=== PATIENT | female | born 1970 | race Caucasian/White ===

== ENCOUNTER → 2018-06-07 | Outpatient (CLI) | payer OTHER | LOC: M ADAMS 14:23 | DX: M17.11 Unilateral primary osteoarthritis, right knee (principal) | CPT/HCPCS: 73564 ==

== ENCOUNTER → 2020-08-22 | Outpatient (REF) | payer OTHER | LOC: M LAB REF 18:45 | PROVIDERS: ATTEND Physician Assistant | DX: L30.9 Dermatitis, unspecified (principal) ==

== ENCOUNTER → 2020-08-31 | Outpatient (REF) | payer OTHER ==
[2020-08-31 16:48] LABS: BASO % 0.4 % (0.0-1.0); EOS # 0.6 10^3/uL (0.0-0.5); EOS % 10.9 % (0.0-3.0); HEMATOCRIT 40.1 % (36.0-47.0); HEMOGLOBIN 12.3 g/dl (12.0-15.5); LYMPH # 1.3 10^3/uL (1.5-5.0); LYMPH % 23.5 % (24.0-44.0); MEAN CORPUSCULAR HEMOGLOBIN 26.3 pg (27.0-33.0); MEAN CORPUSCULAR HGB CONC 30.7 g/dl (32.0-36.5); MEAN CORPUSCULAR VOLUME 85.7 fl (80.0-96.0); MONO # 0.6 10^3/uL (0.0-0.8); NEUTROPHILS # 3.1 10^3/uL (1.5-8.5); PLATELET COUNT, AUTOMATED 446 10^3/uL (150-450); RED BLOOD COUNT 4.68 10^6/uL (4.00-5.40); WHITE BLOOD COUNT 5.6 10^3/uL (4.0-10.0)
[2020-08-31 17:09] LABS: HEMOGLOBIN A1c 5.4 %
[2020-08-31 17:22] LABS: ALBUMIN 3.8 GM/DL (3.2-5.2); ALT/SGPT 28 U/L (12-78); BILIRUBIN,TOTAL 0.2 MG/DL (0.2-1.0); BLOOD UREA NITROGEN 19 MG/DL (7-18); CALCIUM LEVEL 9.7 MG/DL (8.5-10.1); CARBON DIOXIDE LEVEL 28 MEQ/L (21-32); CHLORIDE LEVEL 100 MEQ/L (98-107); CHOLESTEROL LEVEL 277 MG/DL (<200); CHOLESTEROL RISK RATIO 4.396 (<5); CREATININE FOR GFR 0.93 MG/DL (0.55-1.30); GLOMERULAR FILTRATION RATE > 60.0 (>58); GLUCOSE, FASTING 80 MG/DL (70-100); HDL CHOLESTEROL 63 MG/DL (>40); LDL CHOLESTEROL 193 MG/DL (<100); NON-HDL-C 214 MG/DL; POTASSIUM SERUM 4.3 MEQ/L (3.5-5.1); SODIUM LEVEL 136 MEQ/L (136-145); TOTAL PROTEIN 8.4 GM/DL (6.4-8.2); TRIGLYCERIDES LEVEL 107 MG/DL (<150)
== END ==
LOC: M LAB REF 16:13
PROVIDERS: ATTEND Physician Assistant
DX: G43.909 Migraine, unspecified, not intractable, without status migrainosus (principal); E66.9 Obesity, unspecified; Z13.220 Encounter for screening for lipoid disorders; Z13.228 Encounter for screening for other metabolic disorders

== ENCOUNTER 2021-06-22 13:20 | Inpatient (IN) | payer OTHER ==
[2021-06-22] VITALS (9 sets, daily range): BP systolic 109–122; BP diastolic 58–77
[~2021-06-22] VITALS: Ht 157.5 cm; Wt 108.0 kg
[2021-06-22 15:05] LABS: BASO % 0.2 % (0.0-1.0); EOS # 0.3 10^3/uL (0.0-0.5); EOS % 5.9 % (0.0-3.0); LYMPH # 1.1 10^3/uL (1.5-5.0); LYMPH % 22.3 % (24.0-44.0); MEAN CORPUSCULAR HGB CONC 26.1 g/dl (32.0-36.5); MEAN CORPUSCULAR VOLUME 65.2 fl (80.0-96.0); MONO # 0.5 10^3/uL (0.0-0.8); MONO % 9.6 % (2.0-8.0); NEUTROPHILS % 61.4 % (36.0-66.0); PLATELET COUNT, AUTOMATED 347 10^3/uL (150-450); RED BLOOD COUNT 2.76 10^6/uL (4.00-5.40); WHITE BLOOD COUNT 4.9 10^3/uL (4.0-10.0)
[2021-06-22 15:07] LABS: HEMOGLOBIN 4.7 g/dl (12.0-15.5)
[2021-06-22 15:36] LABS: ALBUMIN 3.2 GM/DL (3.2-5.2); ALT/SGPT 14 U/L (12-78); BILIRUBIN,TOTAL 0.2 MG/DL (0.2-1.0); BLOOD UREA NITROGEN 9 MG/DL (7-18); CARBON DIOXIDE LEVEL 29 MEQ/L (21-32); CHLORIDE LEVEL 109 MEQ/L (98-107); CREATININE FOR GFR 0.78 MG/DL (0.55-1.30); GLOMERULAR FILTRATION RATE > 60.0 (>51); GLUCOSE, FASTING 85 MG/DL (70-100); POTASSIUM SERUM 4.2 MEQ/L (3.5-5.1); SODIUM LEVEL 140 MEQ/L (136-145); TOTAL PROTEIN 6.8 GM/DL (6.4-8.2)
[2021-06-22] MEDS ORDERED: BUPR75TA5 PO (15:54)
[2021-06-22] MEDS ORDERED: TRAZ-189 PO (15:54)
[2021-06-22] MEDS ORDERED: PANT40TA29 PO (15:54)
[2021-06-22] MEDS ORDERED: FAMO40TA3 PO (15:54)
[2021-06-22] MEDS ORDERED: DUPI300I PO (15:54)
[2021-06-22] MEDS ORDERED: ARIP10TA32 PO (15:54)
[2021-06-22] MEDS ORDERED: VITA200016 PO (15:54)
[2021-06-22] MEDS ORDERED: ZOLO100T PO (15:54)
[2021-06-22] MEDS ORDERED: GABA600T4 PO ×2 (15:54)
[2021-06-22] MEDS ORDERED: LEVOTAB10 PO (15:54)
[2021-06-22] MEDS ORDERED: CIPR0.3S6 OS (15:54)
[2021-06-22] MEDS ORDERED: HYDR50CA2 PO (15:54)
[2021-06-22] MEDS ORDERED: MOM 30ML SUSPENSION UDC PO PRN (16:40)
[2021-06-22] MEDS ORDERED: MAALOX 30 ML SUSP *UDC PO PRN (16:40)
[2021-06-22] MEDS ORDERED: ACETAMINOPHEN TAB 650MG DOSE (2X325MG) PO PRN (16:40)
--- NOTE | 2021-06-22 16:50 | HPEPDOC ---
[facility] Medical History & Physical Date of Admission Jun 22, 2021 Date of Service: Jun 22, 2021 History and Physical CHIEF COMPLAINT: anemia HISTORY OF PRESENT ILLNESS: 51 yo F with a pmhx of asthma, eczema, migraines, bilateral knee osteoarthritis depression, GERD, class 3 obesity, presented from PCP office with Hgb of 4.7. 2 month history of generalized fatigue and shortness of breath. Stool heme occult positive in ER. She has no abdominal pain, no history of melena, no hematemesis, no personal or family hx of colon ca. She take advil twice daily and has done so for many months, to treat her knee pain. She denies prior hx of heavy etoh use. Patient had 3 units pRBC ordered, and will be admitted to hospitalist service with general surgery consultation. PAST MEDICAL HISTORY: Asthma Arthritis Migraines Eczema Allergies GERD Obesity HLD PAST SURGICAL HISTORY: Hysterectony 07/2004 Tonsillectomy 11/2006 Cholecystectomy 02/2006 SOCIAL HISTORY: Non smoker Non drinker Denies illicit drug use FAMILY HISTORY: Diabetes in mother's side ALLERGIES: Please see below. REVIEW OF SYSTEMS: 10 point ROS was conducted, relevant findings are noted in the HPI. HOME MEDICATIONS: Please see below. PHYSICAL EXAMINATION: VITAL SIGNS: please see below GENERAL APPEARANCE: pale, calm, comfortable sitting in bed. HEENT: PERRLA, EOMI. CARDIOVASCULAR: RRR, normal S1, S2, no rubs or gallps. LUNGS: CTAB, good inspiratory effort ABDOMEN: soft, non tender, non distended, no rigidity or guarding. MUSCULOSKELETAL: normal ROM, no joint deformity, knee pain on ROM. EXTREMITIES: no cyanosis, no edema. NEUROLOGICAL: no focal neuro deficit, CN2-12, speech clear. PSYCHIATRIC: calm, appropriate. LABORATORY DATA: See below. MICROBIOLOGY: Please see below. ASSESSMENT: . PLAN: Blood loss anemia: 2 month hx of fatigue, SOB. PCP referred to ER. Hgb 4.7. No gross bleeding. Stool heme occult positive in ER. 3 units of pRBC ordered. Start PPI IV. D/w Dr. Jackson, surgical consult placed. Likely endoscopy as outpatient if Hgb stable. Repeat CBC after transfusion. Depression: resume home meds Obesity: class 3. BMI 43.2. Complicates care. HLD: resume home meds. Dispo: once clinically stable, expect to return home after 2 midnights. Full Code Diet: clear liquid diet. Vital Signs Vital Signs Date Time Temp Pulse Resp B/P (MAP) Pulse Ox O2 Delivery O2 Flow Rate FiO2 06/22/21 13:25 98.0 89 16 112/55 (74) 99 Laboratory Data Labs 24H Laboratory Tests 2 06/22/21 14:50: Immature Granulocyte % (Auto) 0.6, Neutrophils (%) (Auto) 61.4, Lymphocytes (%) (Auto) 22.3L, Monocytes (%) (Auto) 9.6H, Eosinophils (%) (Auto) 5.9H, Basophils (%) (Auto) 0.2, Neutrophils # (Auto) 3.0, Lymphocytes # (Auto) 1.1L, Monocytes # (Auto) 0.5, Eosinophils # (Auto) 0.3, Basophils # (Auto) 0.0, Nucleated Red Blood Cells % (auto) 0.6H, Anion Gap 2L, Glomerular Filtration Rate > 60.0, Calcium Level 9.0, Total Bilirubin 0.2, Aspartate Amino Transf (AST/SGOT) 12, Alanine Aminotransferase (ALT/SGPT) 14, Alkaline Phosphatase 60, Total Protein 6.8, Albumin 3.2, Albumin/Globulin Ratio 0.9L 06/22/21 14:53: POC Glucose (Misc Panel) 88, POC Sodium (Misc Panel) 142, POC Potassium (Misc Panel) 3.9, POC Chloride (Misc Panel) 103, POC Total CO2 (Misc Panel) 25.0, POC Blood Urea Nitrogen (Misc Panel 7L, POC Ionized Calcium (Misc Panel) 5.0, POC Creatinine (Misc Panel) 0.8, POC Hematocrit (Misc Panel) 17.0L CBC/BMP Laboratory Tests 06/22/21 14:50 Home Medications Scheduled Aripiprazole (Aripiprazole) 10 Mg Tablet, 10 MG PO DAILY Bupropion HCl (Bupropion HCl) 75 Mg Tablet, 75 MG PO BID Cholecalciferol (Vitamin D3) (Vitamin D3) 50 Mcg Capsule, 50 MCG PO DAILY Ciprofloxacin Hcl (Ciprofloxacin HCl) 0.3% 2.5ML Drops, 1 DROP OU Q4H Dupilumab (Dupixent) 300 Mg/2 Ml Syringe, 300 MG PO Q2WK Famotidine (Famotidine) 40 Mg Tablet, 40 MG PO DAILY Gabapentin (Gabapentin) 600 Mg Tablet, 600 MG PO DAILY Gabapentin (Gabapentin) 600 Mg Tablet, 1,200 MG PO BID MIDDAY AND QHS Levocetirizine Dihydrochloride (Levocetirizine Dihydrochloride) 5 Mg Tablet, 5 MG PO DAILY Pantoprazole Sodium (Pantoprazole Sodium) 40 Mg Tablet.dr, 40 MG PO DAILY Sertraline Hcl (Zoloft) 100 Mg Tablet, 200 MG PO DAILY Trazodone HCl (Trazodone HCl) 100 Mg Tablet, 150 MG PO QHS Scheduled PRN Hydroxyzine Pamoate (Hydroxyzine Pamoate) 50 Mg Capsule, 50 MG PO QID PRN for ANXIETY Allergies Coded Allergies: MS - Ibuprofen (Verified Allergy, Unknown, 09/30/14) MS - Penicillins (Verified Allergy, Unknown, 01/21/13) MS - Penicillins Cross Reactors (Verified Allergy, Unknown, 01/21/13) MS - Azithromycin (Unverified Adverse Reaction, Mild, ITCHING, 01/21/13) MS - Sulfa Drugs (Unverified Adverse Reaction, Mild, ITCHING, 01/21/13) MS - Sulfa Drugs Cross Reactors (Unverified Adverse Reaction, Mild, ITCHING, 01/21/13) MS - Sulfamethoxazole (Unverified Adverse Reaction, Mild, ITCHING, 01/21/13) MS - Trimethoprim (Unverified Adverse Reaction, Mild, ITCHING, 01/21/13) Uncoded Allergies: VACCINES (Allergy, Severe, INCREASED FEVER/HOSPITALIZED , 01/21/13) MIN OLIVARES MD Jun 22, 2021 16:50
[2021-06-22] MEDS ORDERED: ARIP1TAB6 PO (16:54)
[2021-06-22] MEDS ORDERED: IBUP-1720 PO (16:57)
[2021-06-22] MEDS ORDERED: ACET-683 PO (16:57)
[2021-06-22] MEDS ORDERED: HOME MED LIST COMPLETE! XX SCH (17:00)
--- NOTE | 2021-06-22 17:41 | REPVR ---
PROCEDURE INFORMATION: Exam: CT Abdomen And Pelvis Without Contrast Exam date and time: 06/22/2021 5:12 PM Age: 51 years old Clinical indication: Other: Gi bleed; Additional info: Gib TECHNIQUE: Imaging protocol: Computed tomography of the abdomen and pelvis without contrast. Axial, coronal and sagittal reformatted images were created and reviewed. Radiation optimization: All CT scans at this facility use at least one of these dose optimization techniques: automated exposure control; mA and/or kV adjustment per patient size (includes targeted exams where dose is matched to clinical indication); or iterative reconstruction. COMPARISON: CR Spine. Lumbosacral, complete 08/10/2014 1:24 PM FINDINGS: Lungs: Minimal linear stranding and groundglass at the lung bases, likely due to atelectasis and/or scarring. Mediastinal space: Small hiatal hernia. Liver: Mild hepatomegaly. Gallbladder and bile ducts: Status post cholecystectomy. No biliary ductal dilatation. Pancreas: Unremarkable. Spleen: Unremarkable. Adrenal glands: Normal. No mass. Kidneys and ureters: No mass. No radiodense calculi. No hydronephrosis. Stomach and bowel: No bowel wall thickening. No obstruction. No pneumatosis. Appendix: Normal. Intraperitoneal space: No free fluid. No organized fluid collection. No free air. Vasculature: Minimal atherosclerotic disease. No aneurysm. Lymph nodes: No pathologically enlarged lymph nodes. Urinary bladder: Unremarkable as visualized. Reproductive: Status post hysterectomy. Bones/joints: No acute osseous abnormality. Mild degenerative changes. Soft tissues: Unremarkable. IMPRESSION: 1. Limited noncontrast examination without CT evidence of acute intra-abdominal or pelvic pathology. 2. Additional findings, as above. Electronically signed by: Bc Pak On 06/22/2021 17:41:12 PM
[2021-06-22 17:46] LABS: RSV AMPLIFICATION NEGATIVE (NEGATIVE)
[2021-06-22] MEDS ORDERED: hydrOXYzine 50 MG TAB PO PRN (19:30)
[2021-06-22] MEDS: GABAPENTIN 300 MG CAP PO SCH (21:58)
[2021-06-22] MEDS: ARIPiprazole 10 MG TAB PO SCH (21:58)
[2021-06-22] MEDS: traZODone 50 MG TAB PO SCH (21:58)
[2021-06-23] VITALS (10 sets, daily range): BP systolic 111–129; BP diastolic 62–80
[2021-06-23] MEDS: PANTOPRAZOLE 40MG VIAL (C9113 PER 1) IV SCH ×2 (00:21→08:13)
[2021-06-23] MEDS: CIPROFLOXACIN 0.3% OPHTH SOLN 2.5ML OS SCH ×6 (04:00→20:00)
[2021-06-23 04:27] LABS: BASO % 0.2 % (0.0-1.0); EOS # 0.3 10^3/uL (0.0-0.5); EOS % 4.7 % (0.0-3.0); HEMATOCRIT 24.6 % (36.0-47.0); LYMPH % 17.6 % (24.0-44.0); MEAN CORPUSCULAR HEMOGLOBIN 20.9 pg (27.0-33.0); MEAN CORPUSCULAR HGB CONC 29.3 g/dl (32.0-36.5); MEAN CORPUSCULAR VOLUME 71.5 fl (80.0-96.0); MONO # 0.5 10^3/uL (0.0-0.8); MONO % 9.8 % (2.0-8.0); NEUTROPHILS # 3.7 10^3/uL (1.5-8.5); NEUTROPHILS % 67.3 % (36.0-66.0); PLATELET COUNT, AUTOMATED 310 10^3/uL (150-450); RED BLOOD COUNT 3.44 10^6/uL (4.00-5.40); WHITE BLOOD COUNT 5.5 10^3/uL (4.0-10.0)
[2021-06-23 04:38] LABS: HEMOGLOBIN 7.2 g/dl (12.0-15.5)
[2021-06-23 04:51] LABS: ALBUMIN 2.9 GM/DL (3.2-5.2); ALT/SGPT 14 U/L (12-78); BILIRUBIN,TOTAL 0.3 MG/DL (0.2-1.0); BLOOD UREA NITROGEN 8 MG/DL (7-18); CALCIUM LEVEL 8.4 MG/DL (8.5-10.1); CARBON DIOXIDE LEVEL 27 MEQ/L (21-32); CHLORIDE LEVEL 108 MEQ/L (98-107); CREATININE FOR GFR 0.72 MG/DL (0.55-1.30); GLOMERULAR FILTRATION RATE > 60.0 (>51); GLUCOSE, FASTING 87 MG/DL (70-100); POTASSIUM SERUM 3.8 MEQ/L (3.5-5.1); SODIUM LEVEL 141 MEQ/L (136-145); TOTAL PROTEIN 6.3 GM/DL (6.4-8.2)
[2021-06-23] MEDS: GABAPENTIN 300 MG CAP PO SCH ×3 (08:08→20:10)
[2021-06-23] MEDS: SERTRALINE 100 MG TAB PO SCH (08:08)
[2021-06-23] MEDS: buPROPion 75 MG TAB PO SCH (08:13)
--- NOTE | 2021-06-23 09:44 | CR.PDOC ---
General Surgery Consultation Date of Consultation 06/23/21 History and Physical CONSULT REPORT FOR: hospitalist service REASON FOR CONSULTATION: severe anemia HISTORY OF PRESENT ILLNESS: Patient is a 51-year-old female admitted yesterday afternoon after she was found to be severely anemic on labs performed on her primary care provider's office which was performed to evaluate her complaints of generalized body weakness, easy fatigability for the past 2 months or so. She denies any passage of cross blood, hematemesis, hematochezia, melena. She denies any ongoing abdominal discomfort though she mentions that she does have reflux or heartburn problems for which she was given pantoprazole 40 mg which she takes in the morning and famotidine 40 mg which he takes in the evening with adequate relief of her discomfort. She takes an average of 2 g of Tylenol and 1200 mg of ibuprofen almost daily for her knee arthritis for so long she could remember according to her. She has never had any colonoscopy. She denies any significant family or personal history for GI malignancy, colorectal cancer, inflammatory bowel disease. She denies any unexplained weight loss. Here in the ER she was found to have a hemoglobin of 4.7, hematocrit of 18. So far she has gotten 3 units of blood which raised her levels to 7.2 of hemoglobin and 24.6 of hematocrit. Has no bowel movements since yesterday morning which he reports is normal. She reports normal regular formed brown stools. I was asked to see the patient consider performing endoscopy and colonoscopy while she is here. PAST MEDICAL HISTORY: 1. Asthma 2. Arthritis 3. Migraines 4. Obesity BMI 43.5 5. Gastroesophageal reflux disease 6. Hyperlipidemia. PAST SURGICAL HISTORY: INCLUDES: 1. Hysterectomy 2003 2. Tonsillectomy 3. Cholecystectomy. PREVIOUS ANESTHESIA REACTIONS: Denies ALLERGIES: Please see below. FAMILY HISTORY: Denies significant family history for colorectal malignancy, GI malignancy, inflammatory bowel disease.. HOME MEDICATIONS: Please see below. REVIEW OF SYSTEMS: GENERAL: Denies any significant weight loss, fevers chills, change in appetite, reports 2-month history of weakness easy fatigability. HEENT: Denies problems with vision or hearing. NECK: Denies any neck pain]. CARDIOVASCULAR: Denies chest pain and palpitations. MUSCULOSKELETAL: Reports significant bilateral knee pain from arthritis. SKIN: Denies rash. NEUROLOGIC: Reports occasional migraine headaches. HEMATOLOGY/ONCOLOGY: Denies bleeding or clotting disorder. She takes NSAIDs regularly, not on any anticoagulation HEART: Denies any chest pains, palpitations, paroxysmal dyspnea, orthopnea. PULMONARY: Denies chronic cough, dyspnea and wheezing. GASTROINTESTINAL: See HPI. GENITOURINARY: Denies dysuria, frequency, hematuria and nocturia. ENDOCRINE: Denies polydipsia, polyphagia, polyuria, heat or cold intolerance. INFECTIOUS: Denies any recent upper respiratory tract infection, UTI, need for use of antibiotics. NUTRITION: Reports fair appetite. PHYSICAL EXAMINATION: VITALS SIGNS: Please see below. GENERAL APPEARANCE: Patient seen sitting up on the bed, comfortable in no acute distress. SKIN: Warm and dry, pale appearance. HEENT: Normocephalic, atraumatic. pale palpebral conjunctiva, anicteric sclerae. Lips and mucosa appear moist. NECK: Supple, no thyromegaly. No obvious jugular venous distention. LUNGS: Clear to auscultation bilaterally. No wheezing appreciated. HEART: No chest wall abnormalities. Regular rate and rhythm with no murmurs appreciated. ABDOMEN: Abdomen is obese, soft, round. Nondistended. No tenderness over the epigastric area in particular. Prior surgical scars all healed no herniation. EXTREMITIES: No significant extremity edema ANCILLARIES: . LABORATORY DATA: Please see below. IMAGING STUDIES: She had a CT abdomen and pelvis that was read as normal. IMPRESSION AND PLAN: Significant anemia, symptomatic anemia Probable GI source may be upper GI source given his significant history for intake of NSAIDs daily for her arthritis. She is 51 years old has not had any screening colonoscopy done yet. I will schedule her for upper endoscopy and colonoscopy in the morning. She will have a bowel prep tonight. Keep her on clear liquids today. I discussed with the patient the details of the proposed procedure, the benefits of performing the procedure, the most common risks on doing the procedure. This may include risk for bleeding with biopsy, polypectomy, risk for perforation, aspiration, adverse drug reaction. I have given her a chance to ask questions, voice out concerns. Patient has agreed to proceed Vital Signs Vital Signs Date Time Temp Pulse Resp B/P (MAP) Pulse Ox O2 Delivery O2 Flow Rate FiO2 06/23/21 08:21 98.3 79 16 128/74 95 Room Air I&Os I&O- Last 24 Hours up to 6 AM 06/23/21 05:59 Intake Total 1800 ml Output Total 0 ml Balance 1800 ml Laboratory Data Labs 24H Laboratory Tests 2 06/22/21 14:50: Immature Granulocyte % (Auto) 0.6, Neutrophils (%) (Auto) 61.4, Lymphocytes (%) (Auto) 22.3L, Monocytes (%) (Auto) 9.6H, Eosinophils (%) (Auto) 5.9H, Basophils (%) (Auto) 0.2, Neutrophils # (Auto) 3.0, Lymphocytes # (Auto) 1.1L, Monocytes # (Auto) 0.5, Eosinophils # (Auto) 0.3, Basophils # (Auto) 0.0, Nucleated Red Blood Cells % (auto) 0.6H, Anion Gap 2L, Glomerular Filtration Rate > 60.0, Calcium Level 9.0, Total Bilirubin 0.2, Aspartate Amino Transf (AST/SGOT) 12, Alanine Aminotransferase (ALT/SGPT) 14, Alkaline Phosphatase 60, Total Protein 6.8, Albumin 3.2, Albumin/Globulin Ratio 0.9L 06/22/21 14:53: POC Glucose (Misc Panel) 88, POC Sodium (Misc Panel) 142, POC Potassium (Misc Panel) 3.9, POC Chloride (Misc Panel) 103, POC Total CO2 (Misc Panel) 25.0, POC Blood Urea Nitrogen (Misc Panel 7L, POC Ionized Calcium (Misc Panel) 5.0, POC Creatinine (Misc Panel) 0.8, POC Hematocrit (Misc Panel) 17.0L 06/22/21 16:53: Coronavirus (COVID-19)(PCR) NEGATIVE, Influenza Type A (RT-PCR) NEGATIVE, Influenza Type B (RT-PCR) NEGATIVE, Respiratory Syncytial Virus (PCR) NEGATIVE 06/23/21 03:45: Immature Granulocyte % (Auto) 0.4, Neutrophils (%) (Auto) 67.3H, Lymphocytes (%) (Auto) 17.6L, Monocytes (%) (Auto) 9.8H, Eosinophils (%) (Auto) 4.7H, Basophils (%) (Auto) 0.2, Neutrophils # (Auto) 3.7, Lymphocytes # (Auto) 1.0L, Monocytes # (Auto) 0.5, Eosinophils # (Auto) 0.3, Basophils # (Auto) 0.0, Nucleated Red Blood Cells % (auto) 0.5H, Anion Gap 6L, Glomerular Filtration Rate > 60.0, Calcium Level 8.4L, Total Bilirubin 0.3, Aspartate Amino Transf (AST/SGOT) 11, Alanine Aminotransferase (ALT/SGPT) 14, Alkaline Phosphatase 56, Total Protein 6.3L, Albumin 2.9L, Albumin/Globulin Ratio 0.9L, Magnesium Level 2.0 CBC/BMP Laboratory Tests 06/22/21 14:50 06/23/21 03:45 Home Medications Scheduled Aripiprazole (Aripiprazole) 10 Mg Tablet, 10 MG PO QHS, (Reported) TAKE WITH 5MG TAB. TOTAL OF 15MG Aripiprazole (Aripiprazole) 5 Mg Tablet, 5 MG PO QHS, (Reported) TAKE WITH 10MG TAB. TOTAL OF 15MG Bupropion HCl (Bupropion HCl) 75 Mg Tablet, 150 MG PO DAILY, (Reported) Cholecalciferol (Vitamin D3) (Vitamin D3) 50 Mcg Capsule, 50 MCG PO DAILY, (Reported) Ciprofloxacin Hcl (Ciprofloxacin HCl) 0.3% 2.5ML Drops, 1 DROP OS Q4H, (Reported) Dupilumab (Dupixent) 300 Mg/2 Ml Syringe, 300 MG PO Q2WK, (Reported) Famotidine (Famotidine) 40 Mg Tablet, 40 MG PO QHS, (Reported) Gabapentin (Gabapentin) 600 Mg Tablet, 600 MG PO DAILY, (Reported) Gabapentin (Gabapentin) 600 Mg Tablet, 1,200 MG PO BID, (Reported) MIDDAY AND QHS Levocetirizine Dihydrochloride (Levocetirizine Dihydrochloride) 5 Mg Tablet, 5 MG PO QHS, (Reported) Pantoprazole Sodium (Pantoprazole Sodium) 40 Mg Tablet.dr, 40 MG PO DAILY, (Reported) Sertraline Hcl (Zoloft) 100 Mg Tablet, 200 MG PO DAILY, (Reported) Trazodone HCl (Trazodone HCl) 100 Mg Tablet, 150 MG PO QHS, (Reported) Scheduled PRN Acetaminophen (Acetaminophen) 500 Mg Tablet, 1,000 MG PO TID PRN for PAIN LEVEL 1-4, (Reported) Hydroxyzine Pamoate (Hydroxyzine Pamoate) 50 Mg Capsule, 50 MG PO QID PRN for ITCHING, (Reported) Ibuprofen (Ibuprofen) 200 Mg Tablet, 800 MG PO TID PRN for PAIN LEVEL 4-7, (Reported) Allergies Coded Allergies: Sulfa (Sulfonamide Antibiotics) (Verified Allergy, Mild, PRURITIS, 06/22/21) azithromycin (Verified Allergy, Mild, PRURITIS, 06/22/21) Penicillins (Unverified Allergy, Unknown, 06/22/21) ibuprofen (Unverified Allergy, Unknown, 06/22/21) Uncoded Allergies: VACCINES (Allergy, Severe, INCREASED FEVER/HOSPITALIZED , 01/21/13) SAROJ MANLEY MD Jun 23, 2021 09:44
--- NOTE | 2021-06-23 11:23 | IPNPDOC ---
Date Seen The patient was seen on 06/23/21. Progress Note SUBJECTIVE: Patient seen examined at bedside. Doing well. No acute bleeding overnight. Hemoglobin improved from 4.7-7.2 after 3 units of packed red blood cells. Fourth unit ordered on running. Patient denies fevers chills nausea vomit diarrhea abdominal pain. OBJECTIVE PHYSICAL EXAMINATION: Physical exam LABORATORY DATA, IMAGING STUDIES, MICROBIOLOGY: Please see below. CT abdomen pelvis without contrast on 06/22/2021: FINDINGS: Lungs: Minimal linear stranding and groundglass at the lung bases, likely due to atelectasis and/or scarring. Mediastinal space: Small hiatal hernia. Liver: Mild hepatomegaly. Gallbladder and bile ducts: Status post cholecystectomy. No biliary ductal dilatation. Pancreas: Unremarkable. Spleen: Unremarkable. Adrenal glands: Normal. No mass. Kidneys and ureters: No mass. No radiodense calculi. No hydronephrosis. Stomach and bowel: No bowel wall thickening. No obstruction. No pneumatosis. Appendix: Normal. Intraperitoneal space: No free fluid. No organized fluid collection. No free air. Vasculature: Minimal atherosclerotic disease. No aneurysm. Lymph nodes: No pathologically enlarged lymph nodes. Urinary bladder: Unremarkable as visualized. Reproductive: Status post hysterectomy. Bones/joints: No acute osseous abnormality. Mild degenerative changes. Soft tissues: Unremarkable. IMPRESSION: 1. Limited noncontrast examination without CT evidence of acute intra-abdominal or pelvic pathology. 2. Additional findings, as above. DVT prophylaxis ordered?: Mechanical prophylaxis only ASSESSMENT: 51 yo F with a pmhx of asthma, eczema, migraines, bilateral knee osteoarthritis depression, GERD, class 3 obesity, presented from PCP office with Hgb of 4.7. 2 month history of generalized fatigue and shortness of breath. Stool heme occult positive in ER. She has no abdominal pain, no history of melena, no hematemesis, no personal or family hx of colon ca. She take advil twice daily and has done so for many months, to treat her knee pain. She denies prior hx of heavy etoh use. Patient had 3 units pRBC ordered, and will be admitted to hospitalist service with general surgery consultation. PLAN: Blood loss anemia: 2 month hx of fatigue, SOB. Takes large amounts of NSAIDs PCP referred to ER. Hgb 4.7. No gross bleeding. Stool heme occult positive in ER. Hgb improved to 7.2 after 3 units of pRBC.. c/w PPI IV. D/w Dr. Jackson, surgical consult placed. D/w Dr. Jackson, plan for upper endoscopy and colonoscopy on 06/24/21. CLD until midnight. Bowel prep ordered by Dr. Jackson. Depression: resume home meds Obesity: class 3. BMI 43.2. Complicates care. HLD: resume home meds. Dispo: once clinically stable, expect to return home after 2 midnights. Full Code Diet: clear liquid diet. VS, I&O, 24H, Fishbone Vital Signs/I&O Vital Signs Date Time Temp Pulse Resp B/P (MAP) Pulse Ox O2 Delivery O2 Flow Rate FiO2 06/23/21 08:21 98.3 79 16 128/74 95 Room Air I&O- Last 24 Hours up to 6 AM 06/23/21 06:00 Intake Total 1800 ml Output Total 375 ml Balance 1425 ml Laboratory Data 24H LABS Laboratory Tests 2 06/22/21 14:50: Immature Granulocyte % (Auto) 0.6, Neutrophils (%) (Auto) 61.4, Lymphocytes (%) (Auto) 22.3L, Monocytes (%) (Auto) 9.6H, Eosinophils (%) (Auto) 5.9H, Basophils (%) (Auto) 0.2, Neutrophils # (Auto) 3.0, Lymphocytes # (Auto) 1.1L, Monocytes # (Auto) 0.5, Eosinophils # (Auto) 0.3, Basophils # (Auto) 0.0, Nucleated Red Blood Cells % (auto) 0.6H, Anion Gap 2L, Glomerular Filtration Rate > 60.0, Calcium Level 9.0, Total Bilirubin 0.2, Aspartate Amino Transf (AST/SGOT) 12, Alanine Aminotransferase (ALT/SGPT) 14, Alkaline Phosphatase 60, Total Protein 6.8, Albumin 3.2, Albumin/Globulin Ratio 0.9L 06/22/21 14:53: POC Glucose (Misc Panel) 88, POC Sodium (Misc Panel) 142, POC Potassium (Misc Panel) 3.9, POC Chloride (Misc Panel) 103, POC Total CO2 (Misc Panel) 25.0, POC Blood Urea Nitrogen (Misc Panel 7L, POC Ionized Calcium (Misc Panel) 5.0, POC Creatinine (Misc Panel) 0.8, POC Hematocrit (Misc Panel) 17.0L 06/22/21 16:53: Coronavirus (COVID-19)(PCR) NEGATIVE, Influenza Type A (RT-PCR) NEGATIVE, Influenza Type B (RT-PCR) NEGATIVE, Respiratory Syncytial Virus (PCR) NEGATIVE 06/23/21 03:45: Immature Granulocyte % (Auto) 0.4, Neutrophils (%) (Auto) 67.3H, Lymphocytes (%) (Auto) 17.6L, Monocytes (%) (Auto) 9.8H, Eosinophils (%) (Auto) 4.7H, Basophils (%) (Auto) 0.2, Neutrophils # (Auto) 3.7, Lymphocytes # (Auto) 1.0L, Monocytes # (Auto) 0.5, Eosinophils # (Auto) 0.3, Basophils # (Auto) 0.0, Nucleated Red Blood Cells % (auto) 0.5H, Anion Gap 6L, Glomerular Filtration Rate > 60.0, Calcium Level 8.4L, Total Bilirubin 0.3, Aspartate Amino Transf (AST/SGOT) 11, Alanine Aminotransferase (ALT/SGPT) 14, Alkaline Phosphatase 56, Total Protein 6.3L, Albumin 2.9L, Albumin/Globulin Ratio 0.9L, Magnesium Level 2.0 CBC/BMP Laboratory Tests 06/22/21 14:50 06/23/21 03:45 MIN OLIVARES MD Jun 23, 2021 11:23
[2021-06-23] MEDS ORDERED: BISACODYL 5 MG TAB PO ONE (16:00)
[2021-06-23] MEDS ORDERED: GOLYTELY SOLN 4000 ML BTL PO ONE (18:00)
[2021-06-23] MEDS: traZODone 50 MG TAB PO SCH (20:10)
[2021-06-23] MEDS: ARIPiprazole 10 MG TAB PO SCH (20:11)
[2021-06-23 22:44] LABS: BASO % 0.2 % (0.0-1.0); EOS # 0.3 10^3/uL (0.0-0.5); EOS % 4.3 % (0.0-3.0); HEMATOCRIT 30.2 % (36.0-47.0); HEMOGLOBIN 9.2 g/dl (12.0-15.5); LYMPH # 1.1 10^3/uL (1.5-5.0); LYMPH % 18.3 % (24.0-44.0); MEAN CORPUSCULAR HGB CONC 30.5 g/dl (32.0-36.5); MEAN CORPUSCULAR VOLUME 72.2 fl (80.0-96.0); MONO # 0.6 10^3/uL (0.0-0.8); MONO % 9.6 % (2.0-8.0); NEUTROPHILS # 4.1 10^3/uL (1.5-8.5); NEUTROPHILS % 67.3 % (36.0-66.0); PLATELET COUNT, AUTOMATED 354 10^3/uL (150-450); RED BLOOD COUNT 4.18 10^6/uL (4.00-5.40); WHITE BLOOD COUNT 6.1 10^3/uL (4.0-10.0)
[2021-06-24] MEDS: CIPROFLOXACIN 0.3% OPHTH SOLN 2.5ML OS SCH
[2021-06-24 06:00] VITALS: BP 112/63
[2021-06-24 06:28] LABS: BASO % 0.2 % (0.0-1.0); EOS # 0.3 10^3/uL (0.0-0.5); EOS % 5.1 % (0.0-3.0); HEMATOCRIT 29.8 % (36.0-47.0); HEMOGLOBIN 9.1 g/dl (12.0-15.5); LYMPH # 0.9 10^3/uL (1.5-5.0); LYMPH % 16.1 % (24.0-44.0); MEAN CORPUSCULAR HEMOGLOBIN 22.2 pg (27.0-33.0); MEAN CORPUSCULAR HGB CONC 30.5 g/dl (32.0-36.5); MEAN CORPUSCULAR VOLUME 72.7 fl (80.0-96.0); MONO # 0.5 10^3/uL (0.0-0.8); MONO % 9.7 % (2.0-8.0); NEUTROPHILS # 3.6 10^3/uL (1.5-8.5); NEUTROPHILS % 68.5 % (36.0-66.0); PLATELET COUNT, AUTOMATED 343 10^3/uL (150-450); WHITE BLOOD COUNT 5.3 10^3/uL (4.0-10.0)
[2021-06-24 06:43] LABS: ALT/SGPT 15 U/L (12-78); BILIRUBIN,TOTAL 0.3 MG/DL (0.2-1.0); BLOOD UREA NITROGEN 7 MG/DL (7-18); CALCIUM LEVEL 9.3 MG/DL (8.5-10.1); CARBON DIOXIDE LEVEL 28 MEQ/L (21-32); CHLORIDE LEVEL 108 MEQ/L (98-107); GLOMERULAR FILTRATION RATE > 60.0 (>51); GLUCOSE, FASTING 84 MG/DL (70-100); MAGNESIUM LEVEL 2.1 MG/DL (1.8-2.4); SODIUM LEVEL 141 MEQ/L (136-145); TOTAL PROTEIN 6.6 GM/DL (6.4-8.2)
[2021-06-24] MEDS: PANTOPRAZOLE 40MG VIAL (C9113 PER 1) IV SCH (09:01)
[2021-06-24] MEDS ORDERED: fentaNYL 100 MCG/2 ML INJECTION (J3010) As Ordered ONE (10:14)
[2021-06-24] MEDS ORDERED: LIDOCAINE 2% 100MG/5ML SDV (FOR ANES.) As Ordered ONE (10:14)
[2021-06-24] MEDS ORDERED: propofoL 500 MG/50 ML VIAL As Ordered ONE (10:14)
--- NOTE | 2021-06-24 10:21 | IPNPDOC ---
Date Seen The patient was seen on 06/24/21. Progress Note SUBJECTIVE: Patient seen examined at bedside. Doing well, no acute events overnight. Hgb stable after 4 units. OBJECTIVE PHYSICAL EXAMINATION: Physical exam LABORATORY DATA, IMAGING STUDIES, MICROBIOLOGY: Please see below. CT abdomen pelvis without contrast on 06/22/2021: FINDINGS: Lungs: Minimal linear stranding and groundglass at the lung bases, likely due to atelectasis and/or scarring. Mediastinal space: Small hiatal hernia. Liver: Mild hepatomegaly. Gallbladder and bile ducts: Status post cholecystectomy. No biliary ductal dilatation. Pancreas: Unremarkable. Spleen: Unremarkable. Adrenal glands: Normal. No mass. Kidneys and ureters: No mass. No radiodense calculi. No hydronephrosis. Stomach and bowel: No bowel wall thickening. No obstruction. No pneumatosis. Appendix: Normal. Intraperitoneal space: No free fluid. No organized fluid collection. No free air. Vasculature: Minimal atherosclerotic disease. No aneurysm. Lymph nodes: No pathologically enlarged lymph nodes. Urinary bladder: Unremarkable as visualized. Reproductive: Status post hysterectomy. Bones/joints: No acute osseous abnormality. Mild degenerative changes. Soft tissues: Unremarkable. IMPRESSION: 1. Limited noncontrast examination without CT evidence of acute intra-abdominal or pelvic pathology. 2. Additional findings, as above. DVT prophylaxis ordered?: Mechanical prophylaxis only ASSESSMENT: 51 yo F with a pmhx of asthma, eczema, migraines, bilateral knee osteoarthritis depression, GERD, class 3 obesity, presented from PCP office with Hgb of 4.7. 2 month history of generalized fatigue and shortness of breath. Stool heme occult positive in ER. She has no abdominal pain, no history of melena, no hematemesis, no personal or family hx of colon ca. She take advil twice daily and has done so for many months, to treat her knee pain. She denies prior hx of heavy etoh use. Patient had 3 units pRBC ordered, and will be admitted to hospitalist service with general surgery consultation. PLAN: Blood loss anemia: 2 month hx of fatigue, SOB. Takes large amounts of NSAIDs PCP referred to ER. Hgb 4.7. No gross bleeding. Stool heme occult positive in ER. Hgb 9.2, stable. Total transfused 4 units prbc. c/w PPI IV. D/w Dr. Jackson, surgical consult placed. D/w Dr. Jackson, plan for upper endoscopy and colonoscopy on 06/24/21. Depression: resume home meds Obesity: class 3. BMI 43.2. Complicates care. HLD: resume home meds. Dispo: once clinically stable, expect to return home after 2 midnights. Full Code Diet: clear liquid diet. VS, I&O, 24H, Fishbone Vital Signs/I&O Vital Signs Date Time Temp Pulse Resp B/P (MAP) Pulse Ox O2 Delivery O2 Flow Rate FiO2 06/24/21 06:00 98.4 77 18 112/63 (79) 97 Room Air I&O- Last 24 Hours up to 6 AM 06/24/21 06:00 Intake Total 2190 ml Output Total 2125 ml Balance 65 ml Laboratory Data 24H LABS Laboratory Tests 2 06/23/21 22:21: Immature Granulocyte % (Auto) 0.3, Neutrophils (%) (Auto) 67.3H, Lymphocytes (%) (Auto) 18.3L, Monocytes (%) (Auto) 9.6H, Eosinophils (%) (Auto) 4.3H, Basophils (%) (Auto) 0.2, Neutrophils # (Auto) 4.1, Lymphocytes # (Auto) 1.1L, Monocytes # (Auto) 0.6, Eosinophils # (Auto) 0.3, Basophils # (Auto) 0.0, Nucleated Red Blood Cells % (auto) 0.8H 06/24/21 05:48: Immature Granulocyte % (Auto) 0.4, Neutrophils (%) (Auto) 68.5H, Lymphocytes (%) (Auto) 16.1L, Monocytes (%) (Auto) 9.7H, Eosinophils (%) (Auto) 5.1H, Basophils (%) (Auto) 0.2, Neutrophils # (Auto) 3.6, Lymphocytes # (Auto) 0.9L, Monocytes # (Auto) 0.5, Eosinophils # (Auto) 0.3, Basophils # (Auto) 0.0, Nucleated Red Blood Cells % (auto) 0.4H, Anion Gap 5L, Glomerular Filtration Rate > 60.0, Calcium Level 9.3, Magnesium Level 2.1, Total Bilirubin 0.3, Aspartate Amino Transf (AST/SGOT) 15, Alanine Aminotransferase (ALT/SGPT) 15, Alkaline Phosphatase 64, Total Protein 6.6, Albumin 3.0L, Albumin/Globulin Ratio 0.8L CBC/BMP Laboratory Tests 06/23/21 22:21 06/24/21 05:48 MIN OLIVARES MD Jun 24, 2021 10:21
--- NOTE | 2021-06-24 10:39 | ROOR ---
Patient Name: Yvonne Bradford Procedure Date: 06/24/2021 9:50 AM Date of : 1970 Age: 51 Gender: Female Note Status: Finalized Procedure: Upper GI endoscopy Indications: Iron deficiency anemia secondary to chronic blood loss Providers: Vini Jackson MD Referring MD: 2. Inpatient 2. Inpatient Requesting Provider: Medicines: Monitored Anesthesia Care Complications: No immediate complications. Procedure: Pre-Anesthesia Assessment: - Prior to the procedure, a History and Physical was performed, and patient medications and allergies were reviewed. The patient is competent. The risks and benefits of the procedure and the sedation options and risks were discussed with the patient. All questions were answered and informed consent was obtained. Patient identification and proposed procedure were verified by the physician, the nurse and the food storeroom clerk in the procedure room. Mental Status Examination: alert and oriented. Airway Examination: normal oropharyngeal airway and neck mobility. Respiratory Examination: clear to auscultation. CV Examination: normal. Prophylactic Antibiotics: The patient does not require prophylactic antibiotics. Prior Anticoagulants: The patient has taken no previous anticoagulant or antiplatelet agents except for NSAID medication. ASA Grade Assessment: III - A patient with severe systemic disease. After reviewing the risks and benefits, the patient was deemed in satisfactory condition to undergo the procedure. The anesthesia plan was to use monitored anesthesia care (MAC). Immediately prior to administration of medications, the patient was re-assessed for adequacy to receive sedatives. The heart rate, respiratory rate, oxygen saturations, blood pressure, adequacy of pulmonary ventilation, and response to care were monitored throughout the procedure. The physical status of the patient was re-assessed after the procedure. The Endoscope was introduced through the mouth, and advanced to the second part of duodenum. The upper GI endoscopy was accomplished without difficulty. The patient tolerated the procedure well. Findings: There is no endoscopic evidence of bleeding, areas of erosion or esophagitis in the entire esophagus. A medium-sized hiatal hernia was found. Bilious fluid was found in the entire examined stomach. The first portion of the duodenum and second portion of the duodenum were normal. Impression: - Medium-sized hiatal hernia. - Bilious gastric fluid. - Normal first portion of the duodenum and second portion of the duodenum. - No specimens collected. Recommendation: - proceed with colonoscopy Procedure Code(s): --- Professional --- 57092, Esophagogastroduodenoscopy, flexible, transoral; diagnostic, including collection of specimen(s) by brushing or washing, when performed (separate procedure) Diagnosis Code(s): --- Professional --- K44.9, Diaphragmatic hernia without obstruction or gangrene D50.0, Iron deficiency anemia secondary to blood loss (chronic) CPT copyright 2019 [employer]. All rights reserved. The codes documented in this report are preliminary and upon silk worker review may be revised to meet current compliance requirements. Vini Jackson MD Vini Jackson MD 06/24/2021 10:38:53 AM Electronically signed by Vini Jackson MD Number of Addenda: 0 Note Initiated On: 06/24/2021 9:50 AM Estimated Blood Loss: Estimated blood loss: none.
--- NOTE | 2021-06-24 10:44 | ROOR ---
Patient Name: Yvonne Bradford Procedure Date: 06/24/2021 9:51 AM Date of : 1970 Age: 51 Gender: Female Note Status: Finalized Procedure: Colonoscopy Indications: Iron deficiency anemia secondary to chronic blood loss Providers: Vini Jackson MD Referring MD: 2. Inpatient 2. Inpatient Requesting Provider: Medicines: Monitored Anesthesia Care Complications: No immediate complications. Procedure: Pre-Anesthesia Assessment: - Prior to the procedure, a History and Physical was performed, and patient medications and allergies were reviewed. The patient is competent. The risks and benefits of the procedure and the sedation options and risks were discussed with the patient. All questions were answered and informed consent was obtained. Patient identification and proposed procedure were verified by the physician, the nurse and the blanker press operator in the procedure room. Mental Status Examination: alert and oriented. Airway Examination: normal oropharyngeal airway and neck mobility. Respiratory Examination: clear to auscultation. CV Examination: normal. Prophylactic Antibiotics: The patient does not require prophylactic antibiotics. Prior Anticoagulants: The patient has taken no previous anticoagulant or antiplatelet agents except for NSAID medication. ASA Grade Assessment: III - A patient with severe systemic disease. After reviewing the risks and benefits, the patient was deemed in satisfactory condition to undergo the procedure. The anesthesia plan was to use monitored anesthesia care (MAC). Immediately prior to administration of medications, the patient was re-assessed for adequacy to receive sedatives. The heart rate, respiratory rate, oxygen saturations, blood pressure, adequacy of pulmonary ventilation, and response to care were monitored throughout the procedure. The physical status of the patient was re-assessed after the procedure. The Colonoscope was introduced through the anus and advanced to the terminal ileum, with identification of the appendiceal orifice and IC valve. The colonoscopy was performed without difficulty. The patient tolerated the procedure well. The quality of the bowel preparation was good. Findings: Hemorrhoids were found on perianal exam. There is no endoscopic evidence of bleeding, erythema, inflammation, mass or ulcerations in the entire colon. The colon (entire examined portion) appeared normal. The retroflexed view of the distal rectum and anal verge was normal and showed no anal or rectal abnormalities. Impression: - Hemorrhoids found on perianal exam. - The entire examined colon is normal. - The distal rectum and anal verge are normal on retroflexion view. - No specimens collected. Recommendation: - Admit the patient [facility] for [facility] care. - - To visualize the small bowel, perform video capsule endoscopy. Refer to Straight Ruling Machine Operator for capsule endoscopy as outpt. Procedure Code(s): --- Professional --- 79960, Colonoscopy, flexible; diagnostic, including collection of specimen(s) by brushing or washing, when performed (separate procedure) Diagnosis Code(s): --- Professional --- K64.9, Unspecified hemorrhoids D50.0, Iron deficiency anemia secondary to blood loss (chronic) CPT copyright 2019 [employer]. All rights reserved. The codes documented in this report are preliminary and upon blending operator review may be revised to meet current compliance requirements. Vini Jackson MD Vini Jackson MD 06/24/2021 10:43:44 AM Electronically signed by Vini Jackson MD Number of Addenda: 0 Note Initiated On: 06/24/2021 9:51 AM Estimated Blood Loss: Estimated blood loss: none.
--- NOTE | 2021-06-24 10:46 | IPNPDOC ---
Text Note Date of Service The patient was seen on 06/24/21. NOTE Upper endoscopy and colonoscopy performed. I was not able to find any findings that explains her anemia. Just moderate sized hiatal hernia which explains her GERD/heartburn symptoms. but no evidence of ulcerations, bleeding. No masses, inflammation Suggest continue with PPI for the heartburn refer to GI as outpatient for capsule endoscopy. \monitor hgb and hct as outpt. VS,Fishbone, I+O VS, Fishbone, I+O Laboratory Tests 06/23/21 22:21 06/24/21 05:48 Vital Signs Date Time Temp Pulse Resp B/P (MAP) Pulse Ox O2 Delivery O2 Flow Rate FiO2 06/24/21 06:00 98.4 77 18 112/63 (79) 97 Room Air I&O- Last 24 Hours up to 6 AM 06/24/21 06:00 Intake Total 2190 ml Output Total 2125 ml Balance 65 ml SAROJ MANLEY MD Jun 24, 2021 10:46
[2021-06-24 11:09] VITALS: BP 158/94
[2021-06-24] MEDS: buPROPion 75 MG TAB PO SCH (11:10)
[2021-06-24] MEDS: GABAPENTIN 300 MG CAP PO SCH ×3 (11:10→20:11)
[2021-06-24] MEDS: SERTRALINE 100 MG TAB PO SCH (11:11)
[2021-06-24] MEDS ORDERED: ONDANSETRON 4MG/2ML VIAL IV PRN (11:35)
[2021-06-24] MEDS ORDERED: LR 1,000 ML IV SCH (11:35)
[2021-06-24 11:40] VITALS: BP 128/81
[2021-06-24 14:00] VITALS: BP 109/64
[2021-06-24] MEDS: traZODone 50 MG TAB PO SCH (20:11)
[2021-06-24] MEDS: ARIPiprazole 10 MG TAB PO SCH (20:11)
[2021-06-24 22:00] VITALS: BP 119/66
[2021-06-25 06:00] VITALS: BP 131/74
[2021-06-25 06:31] LABS: BASO % 0.2 % (0.0-1.0); EOS # 0.4 10^3/uL (0.0-0.5); EOS % 5.7 % (0.0-3.0); HEMATOCRIT 31.4 % (36.0-47.0); HEMOGLOBIN 9.2 g/dl (12.0-15.5); LYMPH # 1.1 10^3/uL (1.5-5.0); LYMPH % 17.6 % (24.0-44.0); MEAN CORPUSCULAR HEMOGLOBIN 21.9 pg (27.0-33.0); MEAN CORPUSCULAR HGB CONC 29.3 g/dl (32.0-36.5); MEAN CORPUSCULAR VOLUME 74.6 fl (80.0-96.0); MONO # 0.8 10^3/uL (0.0-0.8); MONO % 11.8 % (2.0-8.0); NEUTROPHILS # 4.1 10^3/uL (1.5-8.5); NEUTROPHILS % 64.4 % (36.0-66.0); PLATELET COUNT, AUTOMATED 356 10^3/uL (150-450); RED BLOOD COUNT 4.21 10^6/uL (4.00-5.40); WHITE BLOOD COUNT 6.4 10^3/uL (4.0-10.0)
[2021-06-25 07:01] LABS: ALT/SGPT 17 U/L (12-78); BILIRUBIN,TOTAL 0.3 MG/DL (0.2-1.0); BLOOD UREA NITROGEN 15 MG/DL (7-18); CALCIUM LEVEL 8.8 MG/DL (8.5-10.1); CARBON DIOXIDE LEVEL 28 MEQ/L (21-32); CHLORIDE LEVEL 109 MEQ/L (98-107); GLOMERULAR FILTRATION RATE > 60.0 (>51); GLUCOSE, FASTING 87 MG/DL (70-100); MAGNESIUM LEVEL 2.3 MG/DL (1.8-2.4); POTASSIUM SERUM 4.2 MEQ/L (3.5-5.1); SODIUM LEVEL 142 MEQ/L (136-145); TOTAL PROTEIN 6.5 GM/DL (6.4-8.2)
[2021-06-25] MEDS: PANTOPRAZOLE 40MG VIAL (C9113 PER 1) IV SCH ×2 (08:00→09:00)
[2021-06-25] MEDS: buPROPion 75 MG TAB PO SCH (08:00)
[2021-06-25] MEDS: GABAPENTIN 300 MG CAP PO SCH (08:00)
[2021-06-25] MEDS: SERTRALINE 100 MG TAB PO SCH (08:00)
--- NOTE | 2021-06-25 09:58 | DS.PDOC ---
Discharge Summary General Date of Admission Jun 22, 2021 at 16:38 Date of Discharge 06/25/21 Discharge Summary PROCEDURES PERFORMED DURING STAY: [None]. ADMITTING DIAGNOSES: 1. . DISCHARGE DIAGNOSES: 1. . COMPLICATIONS/CHIEF COMPLAINT: Gi Bleed,Severe Anemia. HISTORY OF PRESENT ILLNESS: . HOSPITAL COURSE: . DISCHARGE MEDICATIONS: Please see below. ALLERGIES: Please see below. PHYSICAL EXAMINATION ON DISCHARGE: VITAL SIGNS: Please see below. GENERAL: HEENT: NECK: CARDIOVASCULAR EXAMINATION: RESPIRATORY EXAMINATION: ABDOMINAL EXAMINATION: EXTREMITIES: SKIN: NEUROLOGICAL EXAMINATION: PSYCHIATRIC EXAMINATION: LABORATORY DATA: Please see below. IMAGING: PROGNOSIS: ACTIVITY: [As tolerated]. DIET: DISCHARGE PLAN: DISPOSITION: . DISCHARGE INSTRUCTIONS: 1. . ITEMS TO FOLLOWUP ON ON OUTPATIENT: 1. . DISCHARGE CONDITION: [Stable]. TIME SPENT ON DISCHARGE: minutes. Vital Signs/I&Os Vital Signs Date Time Temp Pulse Resp B/P (MAP) Pulse Ox O2 Delivery O2 Flow Rate FiO2 06/25/21 06:00 98.0 72 18 131/74 (93) 97 Room Air I&O- Last 24 Hours up to 6 AM 06/25/21 06:00 Intake Total 1300 ml Output Total 150 ml Balance 1150 ml Laboratory Data Labs 24H Laboratory Tests 2 06/25/21 05:43: Immature Granulocyte % (Auto) 0.3, Neutrophils (%) (Auto) 64.4, Lymphocytes (%) (Auto) 17.6L, Monocytes (%) (Auto) 11.8H, Eosinophils (%) (Auto) 5.7H, Basophils (%) (Auto) 0.2, Neutrophils # (Auto) 4.1, Lymphocytes # (Auto) 1.1L, Monocytes # (Auto) 0.8, Eosinophils # (Auto) 0.4, Basophils # (Auto) 0.0, Nucleated Red Blood Cells % (auto) 0.0, Anion Gap 5L, Glomerular Filtration Rate > 60.0, Calcium Level 8.8, Magnesium Level 2.3, Total Bilirubin 0.3, Aspartate Amino Transf (AST/SGOT) 15, Alanine Aminotransferase (ALT/SGPT) 17, Alkaline Phos phatase 60, Total Protein 6.5, Albumin 3.0L, Albumin/Globulin Ratio 0.9L CBC/BMP Laboratory Tests 06/25/21 05:43 Discharge Medications Scheduled Aripiprazole (Aripiprazole) 10 Mg Tablet, 10 MG PO QHS, (Reported) TAKE WITH 5MG TAB. TOTAL OF 15MG Aripiprazole (Aripiprazole) 5 Mg Tablet, 5 MG PO QHS, (Reported) TAKE WITH 10MG TAB. TOTAL OF 15MG Bupropion HCl (Bupropion HCl) 75 Mg Tablet, 150 MG PO DAILY, (Reported) Cholecalciferol (Vitamin D3) (Vitamin D3) 50 Mcg Capsule, 50 MCG PO DAILY, (Reported) Ciprofloxacin Hcl (Ciprofloxacin HCl) 0.3% 2.5ML Drops, 1 DROP OS Q4H, (Reported) Dupilumab (Dupixent) 300 Mg/2 Ml Syringe, 300 MG PO Q2WK, (Reported) Famotidine (Famotidine) 40 Mg Tablet, 40 MG PO QHS, (Reported) Gabapentin (Gabapentin) 600 Mg Tablet, 600 MG PO DAILY, (Reported) Gabapentin (Gabapentin) 600 Mg Tablet, 1,200 MG PO BID, (Reported) MIDDAY AND QHS Levocetirizine Dihydrochloride (Levocetirizine Dihydrochloride) 5 Mg Tablet, 5 M G PO QHS, (Reported) Pantoprazole Sodium (Pantoprazole Sodium) 40 Mg Tablet.dr, 40 MG PO DAILY, (Reported) Sertraline Hcl (Zoloft) 100 Mg Tablet, 200 MG PO DAILY, (Reported) Trazodone HCl (Trazodone HCl) 100 Mg Tablet, 150 MG PO QHS, (Reported) Scheduled PRN Acetaminophen (Acetaminophen) 500 Mg Tablet, 1,000 MG PO TID PRN for PAIN LEVEL 1-4, (Reported) Hydroxyzine Pamoate (Hydroxyzine Pamoate) 50 Mg Capsule, 50 MG PO QID PRN for ITCHING, (Reported) Ibuprofen (Ibuprofen) 200 Mg Tablet, 800 MG PO TID PRN for PAIN LEVEL 4-7, (Reported) Allergies Coded Allergies: Sulfa (Sulfonamide Antibiotics) (Verified Allergy, Mild, PRURITIS, 06/22/21) azithromycin (Verified Allergy, Mild, PRURITIS, 06/22/21) Penicillins (Unverified Allergy, Unknown, 06/22/21) ibuprofen (Unverified Allergy, Unknown, 06/22/21) Uncoded Allergies: VACCINES (Allergy, Severe, INCREASED FEVER/HOSPITALIZED INFANT, 01/21/13) MIN OLIVARES MD Jun 25, 2021 09:58
[2021-06-25] MEDS ORDERED: ACET500T15 PO (10:08)
[2021-06-25] MEDS ORDERED: PANT40TA29 PO (10:10)
== END 2021-06-25 13:10 | disposition home or self-care (01) | DRG 253 ==
LOC: M ED 13:20 → M ED INP 16:38 → M MSPAV 20:43
PROVIDERS: ADMIT Family Medicine; ATTEND Family Medicine
PROC: 30233N1 Transfusion of Nonautologous Red Blood Cells into Peripheral Vein, Percutaneous Approach (ICD-10-PCS; principal; 2021-06-22)
PROC: 0DJ08ZZ Inspection of Upper Intestinal Tract, Via Natural or Artificial Opening Endoscopic (ICD-10-PCS; 2021-06-24)
PROC: 0DJD8ZZ Inspection of Lower Intestinal Tract, Via Natural or Artificial Opening Endoscopic (ICD-10-PCS; 2021-06-24)
DX: K92.2 Gastrointestinal hemorrhage, unspecified (principal); Z68.41 Body mass index [BMI] 40.0-44.9, adult; D50.0 Iron deficiency anemia secondary to blood loss (chronic); J45.909 Unspecified asthma, uncomplicated; L30.9 Dermatitis, unspecified; G43.909 Migraine, unspecified, not intractable, without status migrainosus; M17.0 Bilateral primary osteoarthritis of knee; F32.9 Major depressive disorder, single episode, unspecified; K21.9 Gastro-esophageal reflux disease without esophagitis; E66.9 Obesity, unspecified; E78.5 Hyperlipidemia, unspecified; Z90.49 Acquired absence of other specified parts of digestive tract; Z20.822 Contact with and (suspected) exposure to COVID-19; Z79.899 Other long term (current) drug therapy; Z88.0 Allergy status to penicillin; Z88.1 Allergy status to other antibiotic agents; Z88.2 Allergy status to sulfonamides; Z88.8 Allergy status to other drugs, medicaments and biological substances; Z88.7 Allergy status to serum and vaccine; K44.9 Diaphragmatic hernia without obstruction or gangrene; K64.9 Unspecified hemorrhoids

== ENCOUNTER → 2021-06-29 | Outpatient (CLI) | payer OTHER ==
[~2021-06-29] MED LIST: ACET-683 PO; ACET500T15 PO; ARIP10TA32 PO; ARIP1TAB6 PO; BUPR75TA5 PO; CIPR0.3S6 OS; DUPI300I PO; FAMO40TA3 PO; GABA600T4 PO; HYDR50CA2 PO; IBUP-1720 PO; LEVOTAB10 PO; PANT40TA29 PO; TRAZ-189 PO; VITA200016 PO; ZOLO100T PO
[2021-06-29 16:05] LABS: BASO % 0.4 % (0.0-1.0); EOS # 0.4 10^3/uL (0.0-0.5); EOS % 7.2 % (0.0-3.0); HEMATOCRIT 35.2 % (36.0-47.0); HEMOGLOBIN 10.4 g/dl (12.0-15.5); LYMPH % 20.3 % (24.0-44.0); MEAN CORPUSCULAR HEMOGLOBIN 22.1 pg (27.0-33.0); MEAN CORPUSCULAR HGB CONC 29.5 g/dl (32.0-36.5); MEAN CORPUSCULAR VOLUME 74.9 fl (80.0-96.0); MONO # 0.4 10^3/uL (0.0-0.8); NEUTROPHILS # 3.3 10^3/uL (1.5-8.5); NEUTROPHILS % 63.7 % (36.0-66.0); PLATELET COUNT, AUTOMATED 384 10^3/uL (150-450); WHITE BLOOD COUNT 5.1 10^3/uL (4.0-10.0)
== END ==
LOC: M WUC 13:21
PROVIDERS: ATTEND Physician Assistant
DX: D64.9 Anemia, unspecified (principal)

== ENCOUNTER → 2021-07-24 | Outpatient (REF) | payer OTHER ==
[2021-07-24 13:59] LABS: BASO % 0.4 % (0.0-1.0); EOS # 0.2 10^3/uL (0.0-0.5); EOS % 3.3 % (0.0-3.0); HEMATOCRIT 38.9 % (36.0-47.0); HEMOGLOBIN 11.4 g/dl (12.0-15.5); LYMPH % 20.6 % (24.0-44.0); MEAN CORPUSCULAR HEMOGLOBIN 22.8 pg (27.0-33.0); MEAN CORPUSCULAR HGB CONC 29.3 g/dl (32.0-36.5); MEAN CORPUSCULAR VOLUME 77.8 fl (80.0-96.0); MONO # 0.4 10^3/uL (0.0-0.8); MONO % 7.2 % (2.0-8.0); NEUTROPHILS # 3.3 10^3/uL (1.5-8.5); NEUTROPHILS % 68.1 % (36.0-66.0); PLATELET COUNT, AUTOMATED 580 10^3/uL (150-450); WHITE BLOOD COUNT 4.9 10^3/uL (4.0-10.0)
[2021-07-24 14:44] LABS: BLOOD UREA NITROGEN 11 MG/DL (7-18); CREATININE FOR GFR 0.72 MG/DL (0.55-1.30); FERRITIN 18 NG/ML (8-252); GLOMERULAR FILTRATION RATE > 60.0 (>51); IRON (FE) 35 UG/DL (50-170); PERCENT SATURATION 9.6 % (13.2-45.0); TOTAL IRON BINDING CAPACITY 366 UG/DL (250-450)
[2021-07-24 14:49] LABS: VITAMIN B12 LEVEL 443 PG/ML
[2021-07-24 14:51] LABS: FOLATE 14.5 NG/ML
[2021-07-26 17:17] LABS: ANTI-PARIETAL CELL ANTIBODY 1.6 Units (0.0-20.0)
== END ==
LOC: M LABDRWAD 12:18
PROVIDERS: ATTEND Internal Medicine Gastroenterology
DX: D62 Acute posthemorrhagic anemia (principal)

== ENCOUNTER → 2023-01-20 | Outpatient (CLI) | payer OTHER ==
[~2023-01-20] MED LIST changes: +MELO7.5T35 PO
[2023-01-20 12:31] LABS: BASO % 0.2 % (0.0-1.0); EOS # 0.2 10^3/uL (0.0-0.5); EOS % 4.3 % (0.0-3.0); HEMATOCRIT 21.6 % (36.0-47.0); LYMPH # 0.7 10^3/uL (1.5-5.0); LYMPH % 14.1 % (24.0-44.0); MEAN CORPUSCULAR HEMOGLOBIN 22.7 pg (27.0-33.0); MEAN CORPUSCULAR HGB CONC 27.8 g/dl (32.0-36.5); MEAN CORPUSCULAR VOLUME 81.8 fl (80.0-96.0); MONO # 0.3 10^3/uL (0.0-0.8); MONO % 6.8 % (2.0-8.0); NEUTROPHILS # 3.5 10^3/uL (1.5-8.5); NEUTROPHILS % 74.2 % (36.0-66.0); PLATELET COUNT, AUTOMATED 330 10^3/uL (150-450); RED BLOOD COUNT 2.64 10^6/uL (4.00-5.40); WHITE BLOOD COUNT 4.7 10^3/uL (4.0-10.0)
[2023-01-20 12:45] LABS: TOTAL IRON BINDING CAPACITY 428 UG/DL (250-425)
[2023-01-20 12:48] LABS: IRON (FE) 7 UG/DL (50-170); PERCENT SATURATION 1.6 % (13.2-45.0)
[2023-01-20 14:44] LABS: ALBUMIN 3.5 G/DL (3.2-5.2); ALKALINE PHOSPHATASE 72 U/L (46-116); ALT/SGPT 18 U/L (7.0-40); AST/SGOT 16 U/L (<34); BILIRUBIN,TOTAL 0.2 MG/DL (0.3-1.2); BLOOD UREA NITROGEN 16 MG/DL (9-23); CALCIUM LEVEL 9.1 MG/DL (8.5-10.1); CARBON DIOXIDE LEVEL 27 MMOL/L (20-31); CHLORIDE LEVEL 105 MMOL/L (98-107); CHOLESTEROL LEVEL 213 MG/DL (<200); CHOLESTEROL RISK RATIO 3.78 (<5); CREATININE FOR GFR 0.81 MG/DL (0.55-1.30); GLOMERULAR FILTRATION RATE > 60.0 (>51); GLUCOSE, FASTING 87 MG/DL (60-100); HDL CHOLESTEROL 56.3 MG/DL (>40); NON-HDL-C 156.7 MG/DL; POTASSIUM SERUM 4.1 MMOL/L (3.5-5.1); SODIUM LEVEL 138 MMOL/L (136-145)
[2023-01-20 19:01] LABS: LDL CHOLESTEROL 127.3 MG/DL (<100); TOTAL PROTEIN 6.9 G/DL (5.7-8.2); TRIGLYCERIDES LEVEL 147 MG/DL (<150)
== END ==
LOC: M LAB 10:14
PROVIDERS: ATTEND Pediatrics
DX: Z51.81 Encounter for therapeutic drug level monitoring (principal); Z79.899 Other long term (current) drug therapy; E78.5 Hyperlipidemia, unspecified; D50.9 Iron deficiency anemia, unspecified

== ENCOUNTER 2023-01-21 10:52 | Observation (INO) | payer OTHER ==
[2023-01-21] VITALS (10 sets, daily range): BP systolic 101–147; BP diastolic 60–86
[~2023-01-21 10:52] MED LIST changes: +CIPR0.3S37 OS; -CIPR0.3S6 OS; -MELO7.5T35 PO
[2023-01-21 14:00] LABS: EOS # 0.1 10^3/uL (0.0-0.5); EOS % 3.2 % (0.0-3.0); LYMPH # 0.7 10^3/uL (1.5-5.0); MEAN CORPUSCULAR HEMOGLOBIN 22.1 pg (27.0-33.0); MEAN CORPUSCULAR HGB CONC 27.3 g/dl (32.0-36.5); MEAN CORPUSCULAR VOLUME 81.2 fl (80.0-96.0); MONO # 0.3 10^3/uL (0.0-0.8); MONO % 9.8 % (2.0-8.0); NEUTROPHILS # 2.1 10^3/uL (1.5-8.5); NEUTROPHILS % 65.7 % (36.0-66.0); PLATELET COUNT, AUTOMATED 340 10^3/uL (150-450); RED BLOOD COUNT 2.71 10^6/uL (4.00-5.40); WHITE BLOOD COUNT 3.2 10^3/uL (4.0-10.0)
[2023-01-21 14:15] LABS: BLOOD UREA NITROGEN 14 MG/DL (9-23); CALCIUM LEVEL 8.8 MG/DL (8.5-10.1); CARBON DIOXIDE LEVEL 27 MMOL/L (20-31); CHLORIDE LEVEL 105 MMOL/L (98-107); CREATININE FOR GFR 0.81 MG/DL (0.55-1.30); GLOMERULAR FILTRATION RATE > 60.0 (>51); GLUCOSE, FASTING 88 MG/DL (60-100); POTASSIUM SERUM 4.4 MMOL/L (3.5-5.1); SODIUM LEVEL 140 MMOL/L (136-145)
[2023-01-21] MEDS ORDERED: ACETAMINOPHEN TAB 650MG DOSE (2X325MG) PO PRN (15:40)
[2023-01-21] MEDS ORDERED: MELO7.5T35 PO (15:50)
[2023-01-21] MEDS ORDERED: HOME MED LIST COMPLETE! XX SCH (15:50)
[2023-01-21] MEDS ORDERED: hydrOXYzine 50 MG TAB PO PRN (16:05)
[2023-01-21 16:22] LABS: TOTAL IRON BINDING CAPACITY 426 UG/DL (250-425)
[2023-01-21 16:23] LABS: IRON (FE) 22 UG/DL (50-170); PERCENT SATURATION 5.2 % (13.2-45.0)
[2023-01-21 16:25] LABS: FERRITIN 42.2 NG/ML (7.3-270.7); FOLATE > 24.00 NG/ML (>5.4); VITAMIN B12 LEVEL 266 PG/ML (211-911)
[2023-01-21 16:32] LABS: RSV AMPLIFICATION NEGATIVE (NEGATIVE)
[2023-01-21] MEDS ORDERED: FAMOTIDINE 20 MG TAB PO SCH (21:00)
[2023-01-21] MEDS ORDERED: traZODone 50 MG TAB PO SCH (21:00)
[2023-01-21] MEDS ORDERED: ARIPiprazole 10 MG TAB PO SCH (21:00)
[2023-01-21] MEDS: GABAPENTIN 400MG CAP PO SCH (22:11)
[2023-01-22 00:41] VITALS: BP 110/56
[2023-01-22 01:40] VITALS: BP 132/79
[2023-01-22 02:39] VITALS: BP 110/65
[2023-01-22 04:50] VITALS: BP 124/82
[2023-01-22 06:44] LABS: HEMATOCRIT 28.4 % (36.0-47.0); MEAN CORPUSCULAR HEMOGLOBIN 24.6 pg (27.0-33.0); MEAN CORPUSCULAR HGB CONC 29.9 g/dl (32.0-36.5); MEAN CORPUSCULAR VOLUME 82.3 fl (80.0-96.0); PLATELET COUNT, AUTOMATED 269 10^3/uL (150-450); RED BLOOD COUNT 3.45 10^6/uL (4.00-5.40); WHITE BLOOD COUNT 4.4 10^3/uL (4.0-10.0)
[2023-01-22 06:45] LABS: HEMOGLOBIN 8.5 g/dl (12.0-15.5)
[2023-01-22 07:04] LABS: ALBUMIN 3.2 G/DL (3.2-5.2); ALKALINE PHOSPHATASE 63 U/L (46-116); ALT/SGPT 16 U/L (7.0-40); AST/SGOT 12 U/L (<34); BILIRUBIN,TOTAL 0.3 MG/DL (0.3-1.2); BLOOD UREA NITROGEN 12 MG/DL (9-23); CALCIUM LEVEL 8.4 MG/DL (8.5-10.1); CARBON DIOXIDE LEVEL 26 MMOL/L (20-31); CHLORIDE LEVEL 108 MMOL/L (98-107); CREATININE FOR GFR 0.74 MG/DL (0.55-1.30); GLOMERULAR FILTRATION RATE > 60.0 (>51); GLUCOSE, FASTING 81 MG/DL (60-100); POTASSIUM SERUM 4.4 MMOL/L (3.5-5.1); SODIUM LEVEL 142 MMOL/L (136-145); TOTAL PROTEIN 6.3 G/DL (5.7-8.2)
[2023-01-22] MEDS ORDERED: SERTRALINE 100 MG TAB PO SCH (09:00)
[2023-01-22] MEDS ORDERED: GABAPENTIN 300 MG CAP PO SCH (09:00)
[2023-01-22 11:17] LABS: HEMATOCRIT 29.4 % (36.0-47.0); HEMOGLOBIN 8.8 g/dl (12.0-15.5)
[2023-01-22] MEDS: GABAPENTIN 400MG CAP PO SCH (12:15)
[2023-01-22 14:00] VITALS: BP 119/72
== END 2023-01-22 16:15 | disposition home or self-care (01) ==
LOC: M ED 10:52 → M ED INP 15:39 → ENRESERV 16:21 → M MSPAV 17:13
PROVIDERS: ADMIT Family Medicine; ATTEND Family Medicine
DX: D64.9 Anemia, unspecified (principal); F41.9 Anxiety disorder, unspecified; F32.A Depression, unspecified; Z88.2 Allergy status to sulfonamides; Z88.0 Allergy status to penicillin; Z88.1 Allergy status to other antibiotic agents; Z88.8 Allergy status to other drugs, medicaments and biological substances
CPT/HCPCS: 36415; 36430; 80048; 80053; 82607; 82728; 82746; 83550; 83735; 85014; 85018; 85025; 85027; 86850; 86900; 86901; 86920; 87631; 93041; 94760; 99285; P9016

== ENCOUNTER → 2023-05-29 | Outpatient (REF) | payer OTHER ==
[~2023-05-29] MED LIST changes: +MELO7.5T35 PO
[2023-05-29 13:32] LABS: BASO % 0.3 % (0.0-1.0); EOS # 0.2 10^3/uL (0.0-0.5); EOS % 4.8 % (0.0-3.0); HEMATOCRIT 29.2 % (36.0-47.0); HEMOGLOBIN 8.3 g/dl (12.0-15.5); LYMPH # 0.7 10^3/uL (1.5-5.0); LYMPH % 17.2 % (24.0-44.0); MEAN CORPUSCULAR HEMOGLOBIN 29.2 pg (27.0-33.0); MEAN CORPUSCULAR HGB CONC 28.4 g/dl (32.0-36.5); MEAN CORPUSCULAR VOLUME 102.8 fl (80.0-96.0); MONO # 0.3 10^3/uL (0.0-0.8); NEUTROPHILS # 2.6 10^3/uL (1.5-8.5); NEUTROPHILS % 68.4 % (36.0-66.0); PLATELET COUNT, AUTOMATED 477 10^3/uL (150-450); RED BLOOD COUNT 2.84 10^6/uL (4.00-5.40); WHITE BLOOD COUNT 3.8 10^3/uL (4.0-10.0)
[2023-05-29 13:53] LABS: PERCENT SATURATION 6.8 % (13.2-45.0)
== END ==
LOC: M LABDRWAD 12:31
PROVIDERS: ATTEND Pediatrics
DX: D50.9 Iron deficiency anemia, unspecified (principal)

== ENCOUNTER → 2023-11-10 | Outpatient (CLI) | payer OTHER ==
[2023-11-10 11:30] LABS: BASO % 0.4 % (0.0-1.0); EOS # 0.3 10^3/uL (0.0-0.5); EOS % 7.3 % (0.0-3.0); HEMATOCRIT 35.9 % (36.0-47.0); HEMOGLOBIN 11.3 g/dl (12.0-15.5); LYMPH # 0.8 10^3/uL (1.5-5.0); LYMPH % 17.8 % (24.0-44.0); MEAN CORPUSCULAR HEMOGLOBIN 28.2 pg (27.0-33.0); MEAN CORPUSCULAR HGB CONC 31.5 g/dl (32.0-36.5); MEAN CORPUSCULAR VOLUME 89.5 fl (80.0-96.0); MONO # 0.4 10^3/uL (0.0-0.8); MONO % 8.8 % (2.0-8.0); NEUTROPHILS # 3.1 10^3/uL (1.5-8.5); NEUTROPHILS % 65.5 % (36.0-66.0); PLATELET COUNT, AUTOMATED 388 10^3/uL (150-450); RED BLOOD COUNT 4.01 10^6/uL (4.00-5.40); WHITE BLOOD COUNT 4.7 10^3/uL (4.0-10.0)
[2023-11-10 11:53] LABS: PERCENT SATURATION 8.9 % (13.2-45.0)
[2023-11-10 11:56] LABS: FERRITIN 206.4 NG/ML (7.3-270.7)
== END ==
LOC: M LAB 10:55
PROVIDERS: ATTEND Pediatrics
DX: D50.9 Iron deficiency anemia, unspecified (principal)

== ENCOUNTER → 2023-11-13 | Outpatient (REF) | payer OTHER | LOC: M LAB REF 12:01 | PROVIDERS: ATTEND Nurse Practitioner Family | DX: R30.0 Dysuria (principal) ==

== ENCOUNTER → 2023-12-12 | Outpatient (REF) | payer OTHER ==
[2023-12-12 14:29] LABS: CHOLESTEROL RISK RATIO 6.42 (<5); HDL CHOLESTEROL 60.1 MG/DL (>40); LDL CHOLESTEROL 265.5 MG/DL (<100); NON-HDL-C 325.9 MG/DL
[2023-12-12 14:33] LABS: THYROID STIMULATING HORMONE 2.515 uIU/ML (0.55-4.78)
== END ==
LOC: M LAB REF 12:18
PROVIDERS: ATTEND Pediatrics
DX: E78.5 Hyperlipidemia, unspecified (principal); R35.0 Frequency of micturition

== ENCOUNTER → 2024-09-11 | Outpatient (CLI) | payer OTHER ==
[~2024-09-11] MED LIST changes: -ARIP10TA32 PO; +ARIP10TA63 PO; +GABA-1490 PO; -GABA600T4 PO
== END ==
LOC: M RAD 14:45
PROVIDERS: ATTEND Nurse Practitioner Family
DX: G43.011 Migraine without aura, intractable, with status migrainosus (principal); I67.82 Cerebral ischemia

== ENCOUNTER → 2025-02-10 | Outpatient (REF) | LOC: M PLAIMG 12:13 | PROVIDERS: ATTEND Internal Medicine | DX: M79.662 Pain in left lower leg (principal) ==

== ENCOUNTER → 2025-05-09 | Outpatient (CLI) | payer OTHER | LOC: M SOG 06:50 | PROVIDERS: ATTEND Neuromusculoskeletal Medicine, Sports Medicine | DX: M25.569 Pain in unspecified knee (principal); Z53.9 Procedure and treatment not carried out, unspecified reason ==

== ENCOUNTER → 2025-05-18 | Outpatient (CLI) | payer OTHER | LOC: M SOG 07:05 | PROVIDERS: ATTEND Neuromusculoskeletal Medicine, Sports Medicine | DX: M17.0 Bilateral primary osteoarthritis of knee (principal); M25.461 Effusion, right knee; M25.462 Effusion, left knee ==

== ENCOUNTER → 2025-06-08 | Outpatient (REF) | LOC: M PLAIMG 09:42 | PROVIDERS: ATTEND Internal Medicine | DX: R52 Pain, unspecified (principal) ==

== ENCOUNTER → 2025-06-30 | Outpatient (CLI) | payer OTHER | LOC: M SOG 07:25 | PROVIDERS: ATTEND Neuromusculoskeletal Medicine, Sports Medicine | DX: M19.012 Primary osteoarthritis, left shoulder (principal) ==

== ENCOUNTER → 2025-10-11 | Outpatient (CLI) | payer OTHER ==
[~2025-10-11] MED LIST changes: +BUPR-363 PO; -BUPR75TA5 PO
== END ==
LOC: M RAD 15:04
PROVIDERS: ATTEND Neuromusculoskeletal Medicine, Sports Medicine
DX: M75.42 Impingement syndrome of left shoulder (principal); M75.102 Unspecified rotator cuff tear or rupture of left shoulder, not specified as traumatic; M75.52 Bursitis of left shoulder; M19.012 Primary osteoarthritis, left shoulder; M75.22 Bicipital tendinitis, left shoulder; M62.512 Muscle wasting and atrophy, not elsewhere classified, left shoulder